=== PATIENT | female | born 1960 | race Caucasian/White ===

== ENCOUNTER → 2016-12-11 | Outpatient (CLI) | payer OTHER ==
[~2016-12-11] MED LIST: AMOXICILLIN500 M1 PO; CORTISPORIN-TC10 ML OT; FLEXERIL PO; IBUPROFEN800 MG PO; MEDROL DOSEPAK4 MG PO; NORCO 5/325 TAB1 TAB PO; ZITHROMAX1 G/PKT PO
--- NOTE | ~2016-12-11 | MY29 ---
[facility] A Service of [facility] & [facility] RADIOLOGY TEXT RESULTS PATIENT: TERE MARTINEZ LOCATION: [facility] : 64 UNIT #: [id number] AGE: [address]: Jonny Padilla MD SEX: F ORDER DR: [id number] [facility] [address] [place], [place] [address] [id number] O MR#: [id number] #: [id number] NAME: TERE MARTINEZ : 1960 SEX: F STUDY DATE/TIME: 12/11/2016 11:20 UNIT: [facility] ROOM: STUDY DESCRIPTION: MY ERIK SCREENING W/ CAD BILAT Attending Physician: Jonny Padilla M.D. Referring Physician: Jonny Padilla M.D. Ordering Physician: Jonny Padilla M.D. Primary Care Physician: Jonny Padilla M.D. MEDICAL IMAGING REPORT This report is preliminary unless electronic signature is present EXAM Digital screening mammogram, 12/11/2016, [facility]. HISTORY 56-year-old woman; no risk elevation. Annual screening. COMPARISON Mammograms 10/23/2008. FINDINGS Digital imaging of each breast was completed, utilizing screening protocol. Review includes FDA-approved CAD device. Breast parenchyma is dense with a generalized nodular parenchymal pattern in each breast. There is now a dominant lobulated mass present in the upper outer quadrant of the left breast. This reflects an interim change. While this could represent a cyst cluster, a rapidly growing fibroadenoma, phyllodes variety, is certainly in the differential. Additional left breast imaging is, therefore, indicated to further characterize this dominant and new finding. There are no associated microcalcifications in either breast. Subareolar duct ectasia is stable bilaterally. IMPRESSION Incomplete mammographic evaluation. Additional left breast imaging is recommended to include a true lateral projection and, exaggerated craniocaudal projection, high-resolution spot compression views, and targeted left breast ultrasound. See above complete report. Patients over the age of 40 are entered into a reminder system with target due date for the next mammogram. A result letter will also be sent to the patient. [facility] A Service of [facility] & [facility] RADIOLOGY TEXT RESULTS PATIENT: [facility]ERE [facility]ARTINEZ [id number] [birth year] UNIT #: [id number] AGE: [address]: Jonny Padilla MD SEX: F ORDER DR: BIRADS: 0 Incomplete; need additional imaging evaluation and/or prior mammograms for comparison. STAT * RESULT Dictated by... Phillip Lyles M.D. THIS IS AN ELECTRONICALLY VERIFIED REPORT Phillip Lyles M.D. at 12/11/2016 2:20 PM [place] TD: 12/11/2016 12:05 JOB #: [id number] MEDICAL IMAGING REPORT Page 1 of 1 COPY
== END | disposition home or self-care (01) ==
LOC: CWCC 10:45
DX: Z12.31 Encounter for screening mammogram for malignant neoplasm of breast (principal); R92.8 Other abnormal and inconclusive findings on diagnostic imaging of breast
CPT/HCPCS: G0202